=== PATIENT | female | born 1985 | race Two or more races ===

== ENCOUNTER 2018-02-19 10:40 | Inpatient (IN) | payer OTHER ==
--- NOTE | 2018-02-19 11:34 | HP ---
Past Medical History - Primary Care Physician PCP:: Meghan Calvert - Admission Chief Complaint: Induction of labor History of Present Illness: 32 yo EDC ega 39.3 week admitted for induction of labor due to macrosomia usg 8lbs 3 oz efw Hx of HTN and gestational DM with previous GBS positive History Source: Patient Limitations to Obtaining History: No Limitations - Past Medical History ...: 2 ...Para: 1 - Past Surgical History Past Surgical History: Yes: None Hx Myomectomy: No Hx Transabdominal Cerclage: No - Smoking History Have you smoked in the past 12 months: No - Alcohol/Substance Use Hx Alcohol Use: No History of Substance Use: reports: None - Social History Usual Living Arrangement: Yes: With Spouse History of Recent Travel: No Home Medications - Allergies Allergies/Adverse Reactions: Allergies Allergy/AdvReac Type Severity Reaction Status Date / Time No Known Allergies Allergy Verified 02/19/18 11:39 - Home Medications Home Medications: Ambulatory Orders Vitamins (Sjr) - 1 tab PO DAILY 02/19/18 Review of Systems - Review of Systems Constitutional: reports: No Symptoms Eyes: reports: No Symptoms HENT: reports: No Symptoms Neck: reports: No Symptoms Cardiovascular: reports: No Symptoms Respiratory: reports: No Symptoms Gastrointestinal: reports: No Symptoms Genitourinary: reports: No Symptoms Breasts: reports: No Symptoms Reported Musculoskeletal: reports: No Symptoms Integumentary: reports: No Symptoms Neurological: reports: No Symptoms Endocrine: reports: No Symptoms Hematology/Lymphatic: reports: No Symptoms Psychiatric: reports: No Symptoms Physical Exam - Maternity Constitutional: Yes: Well Nourished, No Distress, Obese Neck: Yes: WNL Cardiovascular: Yes: WNL Lungs: Clear to auscultation Breast(s): Yes: WNL - Abdominal Exam/OB Fundal Height: 40 Number of Fetuses: Single Presentation: Vertex Contractions: Yes Regularity: Regular Intensity: Moderate Monitor Mode: External Category: I Decelerations: None - Vaginal Exam/OB Speculum Exam: No Dilatation (cm): 1 cm Amniotic Membrane Status: Intact Presentation: Vertex/Position - Physical Exam Musculoskeletal: Yes: WNL Extremities: Yes: WNL Edema: No Integumentary: Yes: WNL Problem List - Problems (1) Elective induction of labor planned Code(s): TKQ7641 - (2) Obesity affecting in third trimester Code(s): O99.213 - OBESITY COMPLICATING , THIRD TRIMESTER Assessment/Plan iup at 39.4 week obesity elective induction Plan admit induction cervidil
[2018-02-19] MEDS ORDERED: BUTORPHANOL TARTRATE 1 MG/ML VIAL IVPB ONE (11:46)
[2018-02-19] MEDS ORDERED: PROMETHAZINE HCL 25 MG/1 ML VIAL IVPUSH ONE (11:46)
[2018-02-19] MEDS ORDERED: DINOPROSTONE 10 MG VAGINAL SUPPOSITORY VG ONE ×2 (11:49→12:15)
[2018-02-19 11:50] LABS: BASO % 0.3 % (0-2.0); EOS % 0.4 % (0-4.5); HEMOGLOBIN 13.6 GM/dL (10.7-15.3); LYMPH % 19.5 % (8-40); MCH 28.3 pg (25.7-33.7); MCHC 33.2 g/dl (32.0-36.0); MEAN CELL VOLUME 85.2 fl (80-96); MEAN PLT VOLUME 8.3 fl (7.5-11.1); MONO % 10.5 % (3.8-10.2); NEUT % 69.3 % (42.8-82.8); PLATELET COUNT 291 K/MM3 (134-434); RBC 4.82 M/mm3 (3.60-5.2); RDW 14.9 % (11.6-15.6); WHITE BLOOD COUNT 10.2 K/mm3 (4.0-10.0)
[2018-02-19] MEDS ORDERED: ELECTROLYTE-148 SOLN 1,000 ML IV SCH (12:00)
[2018-02-19 12:04] LABS: INR 0.94 (0.82-1.09); PROTHROMBIN TIME (PATIENT) 10.6 SEC (9.98-11.88)
[2018-02-19 12:06] LABS: ACTIVATED PTT 26.8 SECONDS (26.9-34.4)
[2018-02-19 12:08] VITALS: BMI 45.1
[2018-02-19] MEDS ORDERED: TUBERCULIN PPD 5 TU/0.1ML SYRINGE (IN PATIENT USE ONLY) ID ONE (12:30)
[2018-02-19 12:31] LABS: ANION GAP 12 (8-16); BLOOD UREA NITROGEN 7 mg/dL (7-18); CALCIUM 9.1 mg/dL (8.5-10.1); CHLORIDE 100 mmol/L (98-107); CO2 25 mmol/L (21-32); CREATININE 0.4 mg/dL (0.55-1.02); GLUCOSE,RANDOM 87 mg/dL (74-106); POTASSIUM 4.3 mmol/L (3.5-5.1); SODIUM 137 mmol/L (136-145)
[2018-02-19] MEDS ORDERED: AMPICILLIN - 2 GM in SODIUM CHLORIDE 100 ML IVPB ONE (13:01)
[2018-02-19 13:27] LABS: RPR NONREACTIVE (NONREACTIVE)
[2018-02-19] MEDS ORDERED: AMPICILLIN SODIUM 2 GM VIAL ONE (13:53)
[2018-02-19] MEDS ORDERED: FENTANYL/BUPIVACAINE/NS/PF - PCEA - 50 ML DISP.SYRIN EP ONE (15:24)
[2018-02-19] MEDS ORDERED: BUPIVACAINE HCL/PF 0.25% (2.5MG/ML) 10 ML VIAL ONE (15:29)
--- NOTE | 2018-02-19 15:46 | PN ---
Progress Note (short form) - Note Progress Note: I was asked by Dr. Calvert to begin induction for this pt. I spoke to the pt, her partner, and chart reviewed. Briefly, 32yo P1 with at EGA 39w2d admitted for labor induction. care complicated by maternal obesity. FHT with baseline 140 bpm with moderate variability and accels, no decels, no contractions. VE: 1cm/50/-3, Adequate gynecoid pelvimetry Pt is not in labor. Fetus with Category I tracing. Adequate gynecoid pelvimetry on exam. We had long discussion re: risks, benefits, and alternatives of labor induction. I explained the options of expectant management awaiting spontaneous labor, induction of labor, and elective section. The risks of uterine tachysystole, distress, uterine rupture, need for emergency C/S, hemorrhage, infection, scarring, etc. were discussed. We also discussed the risks of meconium aspiration, shoulder dystocia, and anesthesia options. The pt requested to proceed with induction. We discussed the alternative methods of induction with Cervidil, Cytotec, Folley ballon, and pitocin. The pt prefers Cervidil followed by pitocin, if needed. Cervidil was inserted at 1:45pm.
[2018-02-19] MEDS ORDERED: PHENYLEPHRINE HCL 10 MG/1 ML SINGLE DOSE VIAL ONE (15:54)
[2018-02-19] MEDS ORDERED: NALOXONE HCL 0.4 MG/ML VIAL IVPUSH PRN (16:13)
[2018-02-19] MEDS ORDERED: FENTANYL/BUPIVACAINE/NS/PF - PCEA - 50 ML DISP.SYRIN EP SCH (16:15)
[2018-02-19] MEDS ORDERED: ePHEDrine SULFATE 50 MG/1 ML AMPULE ONE (16:33)
[2018-02-19] MEDS ORDERED: PROPOFOL 20 ML ONE (16:35)
[2018-02-19] MEDS ORDERED: SUCCINYLCHOLINE CHLORIDE 200 MG/10 ML VIAL ONE (16:35)
[2018-02-19] MEDS ORDERED: LIDO 2%/EPI 1:200000 PRESRVFRE (20 ML SDVIAL) ONE (16:36)
--- NOTE | 2018-02-19 16:40 | PN ---
Ante-Partal Exam - Subjective Subjective: Pt with repetitiive decels after epidural and low BP Vital Signs: Vital Signs Temperature 98.8 F 02/19/18 16:00 Pulse Rate 106 H 02/19/18 15:00 Respiratory Rate 20 02/19/18 15:00 Blood Pressure 138/69 02/19/18 15:00 O2 Sat by Pulse Oximetry (%) Bleeding: No Headache: No Visual changes: No Right upper quadrant pain: No - Contractions Contractions: Yes Regularity: Regular Monitor Mode: External - Exam during Labor Variability: Minimal Category: III Monitor Accelerations: Absent Monitor Decelerations: Variable Exam: Vaginal Dilatation (cm): 5-6 cm Amniotic Membrane Status: Ruptured Presentation: Vertex Station: -2 - Assessment/Plan Assessment/Plan: Cat3 nonreasuring tracing obesity Hypotension Plan Primary Section Notify peds notify anesthesia
[2018-02-19] MEDS ORDERED: ceFAZolin SODIUM 1 GM VIAL ONE (16:47)
[2018-02-19] MEDS ORDERED: OXYTOCIN 10 UNITS/ML VIAL ONE ×2 (16:55→17:14)
[2018-02-19] MEDS ORDERED: morphine SULFATE/Preservative Free 0.5 MG/ML (1cc Syringe) EP ONE (17:05)
[2018-02-19] MEDS ORDERED: ONDANSETRON 4 MG/2 ML VIAL IVPUSH PRN (17:07)
[2018-02-19] MEDS ORDERED: IBUPROFEN 600 MG TABLET (FP) PO PRN ×2 (17:07→18:08)
[2018-02-19 17:32] LABS: ARTERIAL BLOOD GAS BASE EXCESS -3.4 meq/l (-2-2); ARTERIAL BLOOD GAS PCO2 57.8 mmHg (35-45); ARTERIAL BLOOD GAS pH 7.25 (7.35-7.45)
[2018-02-19 17:42] LABS: ARTERIAL BLD GAS O2 SATURATION 61.7 % (90-98.9); ARTERIAL BLOOD GAS PO2 30.1 mmHg (80-100)
[2018-02-19 17:50] LABS: VENOUS PO2 20.8 mmHg (28-48)
[2018-02-19 17:51] LABS: VENOUS PH 7.2 (7.32-7.42)
[2018-02-19] MEDS ORDERED: AMPICILLIN - 1 GM in SODIUM CHLORIDE 100 ML IVPB SCH (18:00)
[2018-02-19] MEDS ORDERED: METHYLERGONOVINE MALEATE 0.2 MG/1 ML AMP IM PRN (18:08)
[2018-02-19] MEDS ORDERED: IBUPROFEN 800 MG/8 ML IJ IVPB PRN (18:08)
[2018-02-19] MEDS ORDERED: BENZOCAINE 20% 57 GM BOTTLE TP PRN (18:08)
[2018-02-19] MEDS ORDERED: OXYTOCIN 20 UNITS in 0.9% NS 20 UNIT/1,000 ML INFUS.BAG IV SCH (18:15)
--- NOTE | 2018-02-19 18:25 | OP ---
Operative Note - Note: Operative Date: 02/19/18 Pre-Operative Diagnosis: Nonreassuring Tracing Operation: Primary low transverse Section Findings: Live female infant Post-Operative Diagnosis: Same as Pre-op Surgeon: Meghan Calvert Body Designer: Daren Blackwell Anesthesiologist/SENIOR PRICING ANALYST: William Cervantes Anesthesia: Epidural Estimated Blood Loss (mls): 500 Operative Report Dictated: Yes
--- NOTE | 2018-02-19 18:42 | OP ---
DATE OF OPERATION: 02/19/2018 PREOPERATIVE DIAGNOSIS: Nonreassuring tracing, intrauterine at 39 weeks, and obesity. OPERATION: Primary section. POSTOPERATIVE DIAGNOSIS: Nonreassuring tracing, intrauterine at 39 weeks, and obesity. Life female infant. SURGEON: Raghavendra Calvert M.D. FOOD SERVICE AGENT: Daren Blackwell M.D. ANESTHESIOLOGIST: William Cervantes M.D. ANESTHESIA: Epidural. DESCRIPTION OF PROCEDURE: Patient was taken to the operating room, placed in supine position. Prepped and draped in usual sterile fashion. Pfannenstiel skin incision was made with a scalpel. Cautery was then used to go through layers of abdominal wall towards the fascia. Fascia was cut in the midline, and cautery was then used to open the fascia in smiling fashion. Amena was then used to bluntly and sharply dissect the rectus muscle off the fascia. The muscle split in the midline. Peritoneal cavity was then entered and carried upward and downward. The bladder retractor was then placed. Vesicouterine reflection was then entered and carried downwards. The scalpel was then used to make a low transverse uterine incision. Incision was carried upward using bandage scissors. A live female infant was delivered in OP position. Nuchal cord x1 was reduced. The shoulders were delivered without difficulty. The cord was clamped and cut. Cord pH obtained, and cord blood obtained. Infant was handed to soda maker. The placenta was manually extracted from the uterus. The uterus was exteriorized and cleaned with clean lap pads. The uterine incision was then closed using 0 Biosyn suture, first layer continuous interlocking, second layer imbricating the first layer. Hemostasis was achieved. Abdominal cavity cleaned with clean lap pads. Tubes and ovaries noted normal. Abdominal sweep was done. Peritoneal cavity was then closed using 0 Biosyn suture. Fascia was then closed using 0 Vicryl suture in 2 parts. Subcutaneous was then closed using interrupteds using 0 Biosyn suture, and skin was then closed using 3-0 Vicryl suture in subcuticular fashion. Wound was washed and dressed. Patient tolerated the procedure well. Taken to recovery in stable condition. Estimated blood 500 mL. RAGHAVENDRA CALVERT M.D. [id number] [facility]
[2018-02-19] MEDS ORDERED: OXYTOCIN 20 UNITS in 0.9% NS 20 UNIT/1,000 ML INFUS.BAG IV ONE (19:43)
[2018-02-20 08:48] LABS: BASO % 0.2 % (0-2.0); EOS % 0.1 % (0-4.5); HEMOGLOBIN 11.3 GM/dL (10.7-15.3); LYMPH % 15.1 % (8-40); MCHC 32.4 g/dl (32.0-36.0); MEAN CELL VOLUME 86.5 fl (80-96); MEAN PLT VOLUME 8.4 fl (7.5-11.1); MONO % 11.3 % (3.8-10.2); NEUT % 73.3 % (42.8-82.8); PLATELET COUNT 242 K/MM3 (134-434); RBC 4.04 M/mm3 (3.60-5.2); RDW 14.9 % (11.6-15.6); WHITE BLOOD COUNT 11.2 K/mm3 (4.0-10.0)
--- NOTE | 2018-02-20 08:50 | PN ---
Progress Note (short form) - Note Progress Note: POD #1 - s/p under epidural anesthesia with duramorph. Pt. doing well , sitting up comfortably in bed baby. No complaints. Good pain control. No apparent anesthetic complications noted. Continue current care.
[2018-02-20] MEDS: ENOXAPARIN NA (PORCINE) 40 MG/0.4 ML DISP.SYRIN SQ SCH (09:25)
--- NOTE | 2018-02-20 09:31 | PN ---
Post Progress Note - Subjective Subjective: 32 yo Para 2 status post primary , seen and evaluated. She's lying in bed, no complaints. Post Day: 1 Type of Delivery: Primary C/S Vital Signs: Vital Signs Temperature 99.5 F 02/20/18 07:47 Pulse Rate 100 H 02/20/18 07:47 Respiratory Rate 20 02/20/18 08:00 Blood Pressure 123/68 02/20/18 07:47 O2 Sat by Pulse Oximetry (%) 96 02/19/18 19:30 Breast Exam: Yes: Soft Uterus: Yes: Fundus Firm Incision: Yes: Dressing dry and intact Abdomen/GI: Yes: Abdomen soft, Tolerating PO Lochia: Yes: Rubra Lochia, amount: Small Extremities: Yes: Calves non-tender Perineum: Yes: Intact Activity: Other (Lying in bed) - Labs Labs: CBC WBC 11.2 K/mm3 (4.0-10.0) H 02/20/18 07:45 RBC 4.04 M/mm3 (3.60-5.2) 02/20/18 07:45 Hgb 11.3 GM/dL (10.7-15.3) D 02/20/18 07:45 Hct 35.0 % (32.4-45.2) 02/20/18 07:45 MCV 86.5 fl (80-96) 02/20/18 07:45 MCH 28.0 pg (25.7-33.7) 02/20/18 07:45 MCHC 32.4 g/dl (32.0-36.0) 02/20/18 07:45 RDW 14.9 % (11.6-15.6) 02/20/18 07:45 Plt Count 242 K/MM3 (134-434) 02/20/18 07:45 MPV 8.4 fl (7.5-11.1) 02/20/18 07:45 Neutrophils % 73.3 % (42.8-82.8) 02/20/18 07:45 Lymphocytes % 15.1 % (8-40) D 02/20/18 07:45 Monocytes % 11.3 % (3.8-10.2) H 02/20/18 07:45 Eosinophils % 0.1 % (0-4.5) 02/20/18 07:45 Basophils % 0.2 % (0-2.0) 02/20/18 07:45 Problem List - Problems (1) Status post primary low transverse section Code(s): Z98.891 - HISTORY OF UTERINE SCAR FROM PREVIOUS SURGERY Assessment/Plan Status post primary Obesity DVT prophylaxis Ambulation Analgesia as needed
[2018-02-20] MEDS: SIMETHICONE 80 MG TAB.CHEW (FP) PO PRN ×2 (12:48→21:09)
[2018-02-20] MEDS: ACETAMINOPHEN 325 MG TABLET (FP) PO PRN ×2 (12:49→21:08)
[2018-02-20] MEDS ORDERED: oxyCODONE HCL 5 MG TABLET ONE (14:54)
[2018-02-20] MEDS: IBUPROFEN 600 MG TABLET (FP) PO PRN ×2 (14:57→21:07)
[2018-02-20] MEDS: BISACODYL 10 MG SUPP.RECT RC PRN (16:32)
[2018-02-20] MEDS ORDERED: oxyCODONE HCL 5 MG TABLET PO PRN (18:13)
[2018-02-21] MEDS: SENNOSIDES/DOCUSATE COMBO (SENNA PLUS) TABLET (UD) PO PRN ×3 (00:23→22:21)
[2018-02-21] MEDS: ACETAMINOPHEN 325 MG TABLET (FP) PO PRN ×4 (08:04→22:21)
[2018-02-21] MEDS: SIMETHICONE 80 MG TAB.CHEW (FP) PO PRN ×4 (08:04→22:21)
[2018-02-21] MEDS: oxyCODONE HCL 5 MG TABLET PO PRN ×4 (08:04→22:22)
[2018-02-21] MEDS: ENOXAPARIN NA (PORCINE) 40 MG/0.4 ML DISP.SYRIN SQ SCH (09:50)
--- NOTE | 2018-02-22 00:05 | PN ---
Progress Note (SOAP) - Current Medications Current Medications: Active Medications Acetaminophen (Tylenol -) 650 mg PO Q4H PRN PRN Reason: PAIN SCALE 1-3 Last Admin: 02/21/18 22:21 Dose: 650 mg Benzocaine (Americaine 20% [place] -) 1 spray TP PRN PRN PRN Reason: Pain - Topical Bisacodyl (Dulcolax Suppository -) 10 mg RC PRN PRN PRN Reason: CONSTIPATION Last Admin: 02/20/18 16:32 Dose: 10 mg Diphenhydramine HCl (Benadryl Injection -) 25 mg IVPUSH Q4H PRN PRN Reason: Pruritis Last Admin: 02/20/18 06:32 Dose: 25 mg Enoxaparin Sodium (Lovenox -) 40 mg SQ DAILY DANIELLA Last Admin: 02/21/18 09:50 Dose: 40 mg Parenteral Electrolytes (Plasma-Lyte 148 -) 1,000 mls @ 125 mls/hr IV ASDIR DANIELLA Last Admin: 02/19/18 13:55 Dose: 125 mls/hr Oxytocin/Sodium Chloride (Normal Saline+20 Units Oxytocin -) 20 unit in 1,000 mls @ 125 mls/hr IV [facility]IR [facility] Ibuprofen (Caldolor Injection -) 800 mg IVPB Q8H PRN PRN Reason: PAIN LEVEL 4 - 6 Last Admin: 02/20/18 08:37 Dose: 800 mg Ibuprofen (Motrin -) 600 mg PO Q4H PRN PRN Reason: PAIN SCALE 4 - 10 Last Admin: 02/20/18 21:07 Dose: 600 mg Methylergonovine Maleate (Methergine Injection -) 0.2 mg IM Q4H PRN PRN Reason: Excessive Bleeding (L&D) Naloxone HCl (Narcan -) 0.4 mg IVPUSH PRN PRN PRN Reason: Sedation Ondansetron HCl (Zofran Injection) 4 mg IVPUSH Q4H PRN PRN Reason: NAUSEA Last Admin: 02/19/18 22:12 Dose: 4 mg Oxycodone HCl (Roxicodone -) 5 mg PO Q4H PRN PRN Reason: PAIN LEVEL 4 - 6 Last Admin: 02/20/18 14:57 Dose: 5 mg Oxycodone HCl (Roxicodone -) 10 mg PO Q4H PRN PRN Reason: PAIN LEVEL 7 - 10 Last Admin: 02/21/18 22:22 Dose: 10 mg Senna/Docusate Sodium (Pericolace -) 2 tablet PO HS PRN PRN Reason: CONSTIPATION Last Admin: 02/21/18 22:21 Dose: 2 tablet Simethicone (Mylicon -) 80 mg PO Q4H PRN PRN Reason: GAS Last Admin: 02/21/18 22:21 Dose: 80 mg - Objective Vital Signs: Vital Signs Temperature 98.2 F 02/21/18 22:23 Pulse Rate 94 H 02/21/18 22:23 Respiratory Rate 20 02/21/18 22:23 Blood Pressure 123/69 02/21/18 22:23 O2 Sat by Pulse Oximetry (%) 96 02/19/18 19:30 Constitutional: Yes: Well Nourished, No Distress Cardiovascular: Yes: WNL Respiratory: Yes: WNL ....Post : Yes: Uterus firm, Uterus non-tender Musculoskeletal: Yes: WNL Extremities: Yes: WNL Wound/Incision: Yes: Clean/Dry, Well Approximated Neurological: Yes: WNL, Alert, Oriented Labs Lab Results: CBC, BMP 02/20/18 07:45 02/19/18 11:45 Problem List - Problems (1) Elective induction of labor planned Code(s): [id number] - (2) Obesity affecting in third trimester Code(s): O99.213 - OBESITY COMPLICATING , THIRD TRIMESTER Assessment/Plan pod2 SP CS Plan DC home in am
[2018-02-22] MEDS: BISACODYL 10 MG SUPP.RECT RC PRN (07:28)
[2018-02-22 08:33] LABS: BASO % 0.6 % (0-2.0); EOS % 1.5 % (0-4.5); HEMOGLOBIN 12.4 GM/dL (10.7-15.3); LYMPH % 18.6 % (8-40); MCHC 32.5 g/dl (32.0-36.0); MEAN CELL VOLUME 86.1 fl (80-96); NEUT % 71.3 % (42.8-82.8); PLATELET COUNT 323 K/MM3 (134-434); RBC 4.41 M/mm3 (3.60-5.2); RDW 14.7 % (11.6-15.6); WHITE BLOOD COUNT 11.2 K/mm3 (4.0-10.0)
[2018-02-22] MEDS: SIMETHICONE 80 MG TAB.CHEW (FP) PO PRN ×3 (09:56→22:06)
[2018-02-22] MEDS: ENOXAPARIN NA (PORCINE) 40 MG/0.4 ML DISP.SYRIN SQ SCH (09:56)
[2018-02-22] MEDS: ACETAMINOPHEN 325 MG TABLET (FP) PO PRN ×3 (09:57→22:07)
[2018-02-22] MEDS: IBUPROFEN 600 MG TABLET (FP) PO PRN ×3 (09:57→22:06)
--- NOTE | 2018-02-23 07:23 | DS ---
Physical Exam-VENEER SANDER Vital Signs: Vital Signs Temperature 98.2 F 02/22/18 20:39 Pulse Rate 80 02/22/18 20:39 Respiratory Rate 20 02/22/18 20:39 Blood Pressure 128/84 02/22/18 20:39 O2 Sat by Pulse Oximetry (%) 96 02/19/18 19:30 Constitutional: Yes: Well Nourished Eyes: Yes: Conjunctiva Clear HENT: Yes: Atraumatic Neck: Yes: Supple Cardiovascular: Yes: Regular Rate and Rhythm Respiratory: Yes: Regular Gastrointestinal: Yes: Normal Bowel Sounds External Genitalia: Yes: Normal Vaginal Exam: Yes: Normal Cervix: Yes: Normal Uterus: Yes: Firm Wound/Incision: Yes: Well Approximated, Steri Strips (in place) Neurological: Yes: Alert, Oriented ...Motor Strength: WNL Psychiatric: Yes: Alert, Oriented Labs: CBC, BMP 02/22/18 07:45 02/19/18 11:45 Delivery - Delivery Type of Anesthesia: Epidural Episiotomy/Laceration: None EBL (cc): 500 Delivery, Single - Stages of Labor Date 1st Stage Initiatied: 02/19/18 Time 1st Stage Initiated: 14:30 Date of Delivery: 02/19/18 Time of Delivery: 16:55 Time Placenta Delivered: 16:57 - Condition of An Employee Sponsor Or Advocate And/Piano Sounding Board Matcher Present: Yes Name: Dave Lockhart Gender: Female Weight: 8 lb 6 oz Position: Left, OT Total Hours ROM (Hrs/Mins): 57 min - 1 Minute Total Score: 9 5 Minutes Total Score: 9 - [place] Feeding Plan Initial Plan: Elected not to breastfeed exclusively throughout hospitalization Discharge Summary Reason For Visit: LABOR INDUCTION Current Active Problems Elective induction of labor planned (Acute) Obesity affecting in third trimester (Acute) Status post primary low transverse section (Acute) Procedures: Principal: delivery Hospital Course: Routine Post op care Condition: Good - Instructions Diet, Activity, Other Instructions: Physical activity Resume your normal everyday activity as tolerated no heavy lifting or exercise until seen by your surgeon. You may walk unlimited dago of and climb stairs. You may resume driving the car when you feel safe and comfortable behind the wheel. No sexual activity as instructed. Wound care If you have a bandage, leave it on, and keep dry for 48-72 hours. After that time discard the outer bandage. If they are tapes on the skin under the out of bandage leave them in place. They will peel off in the next 7 to 10 days. Do Not Peel them off. You may shower the day after surgery. If there are tapes present on the skin, you may shower over them. Diet There are no dietary restrictions. Eat healthy, high-fiber foods. Drink 6 to 8 glasses of liquid each day. This will assist in keeping your bowels are regular. Pain management You may take Tylenol or acetaminophen or Ibuprofen (for example, Motrin, Advil etc.) from my pain prescription medication is ordered should be taken as prescribed for moderate to severe pain. Call MD for any of the following: Severe pain not relieved by medication Fever of 101 or higher Excessive bleeding or drainage on dressing Inability to urinate Disposition: HOME - Home Medications Comprehensive Discharge Medication List: Ambulatory Orders Vitamins (Sjr) - 1 tab PO DAILY 02/19/18 Oxycodone HCl/Acetaminophen [Percocet 5-325 mg Tablet] 1 - 2 tab PO Q6H #20 tab MDD 6 02/22/18
[2018-02-23] MEDS: ENOXAPARIN NA (PORCINE) 40 MG/0.4 ML DISP.SYRIN SQ SCH (09:58)
[2018-02-23] MEDS: SIMETHICONE 80 MG TAB.CHEW (FP) PO PRN (09:58)
[2018-02-23] MEDS: IBUPROFEN 600 MG TABLET (FP) PO PRN (09:58)
[2018-02-23] MEDS: ACETAMINOPHEN 325 MG TABLET (FP) PO PRN (09:59)
[2018-02-23 11:59] VITALS: BP 125/68; PULSE 82; TEMP 98.4
--- NOTE | 2018-02-24 11:33 | PATH ---
Surgical Pathology Report Patient Name: RENARD HUERTA Med. Rec. #: [id number] /Age/Gender: 1985 (Age: 32) / F Account: [id number] Location: [facility] OBS/CASE PACKER AND SEALER Taken: 02/19/2018 Received: 02/20/2018 Reported: 02/24/2018 Physicians: Meghan Calvert M.D. Specimen(s) Received PLACENTA Clinical History , 39.2 gestational weeks, nonreassuring heart rate Final Diagnosis PLACENTA, DELIVERY: FOCALLY DISRUPTED THIRD TRIMESTER PLACENTA WITH THREE VESSEL UMBILICAL CORD AND UNREMARKABLE PLACENTAL MEMBRANES. Electronically Signed Esteban Valdez M.D. Gross Description The specimen is received fresh labeled placenta and is a 586 gram, 21.0 x 16.0 x 2.7 cm. placenta with attached membranes and umbilical cord. The attached membranes are khan, translucent with focal opacities and insert marginally. The umbilical cord measures 10.5 cm. in length and averages 1.1 cm. in diameter. The cord inserts eccentrically, 3 cm. to the nearest margin. No true knots or strictures are identified. Cut surface of the umbilical cord reveals 3 vessels. The surface is cole-blue with minimal fibrin deposition and appropriate caliber vessels. The maternal surface is red-brown with focal defects. Sectioning reveals red-brown, spongy parenchyma. No lesions are identified. Scrap Kettle Tender sections are submitted in three cassettes as follows: 1- membrane rolls and umbilical cord; 2-3- full thickness sections of placenta. 02/21/2018 saudi02/21/2018
== END 2018-02-23 11:30 | disposition home or self-care (01) | DRG 540 ==
LOC: JLDR 10:40 → J3W 20:00
PROVIDERS: ADMIT Obstetrics & Gynecology; ATTEND Obstetrics & Gynecology
PROC: 10D00Z1 Extraction of Products of Conception, Low, Open Approach (ICD-10-PCS; principal; 2018-02-19)
DX: O76 Abnormality in fetal heart rate and rhythm complicating labor and delivery (principal); O99.214 Obesity complicating childbirth; E66.8 Other obesity; Z68.42 Body mass index [BMI] 45.0-49.9, adult; Z3A.39 39 weeks gestation of pregnancy; Z37.0 Single live birth
CPT/HCPCS: 36415; 36600; 80048; 82803; 85025; 85610; 85730; 86593; 86850; 86900; 86901; 87389; 88307-TC

== ENCOUNTER 2021-11-18 09:57 | Emergency (ER) | payer OTHER ==
[2021-11-18 10:09] VITALS: BP 118/59; PULSE 65; TEMP 98.5; BMI 29.0
[2021-11-18 13:07] LABS: ALBUMIN 3.5 g/dl (3.4-5.0); BLOOD UREA NITROGEN 7.8 mg/dL (7-18)
[2021-11-18 13:08] LABS: EPI CELLS 20 /uL (0-25.1); HYALINE CASTS 2 /uL (0-3.1); PH,URINE 6.5 (5.0-8.0); URINE APPEARANCE CLEAR; URINE BACTERIA 381 /uL (0-1359); URINE BILIRUBIN NEGATIVE (NEGATIVE); URINE COLOR YELLOW; URINE GLUCOSE (UA) NEGATIVE (NEGATIVE); URINE KETONE NEGATIVE (NEGATIVE); URINE LEUK ESTERASE NEGATIVE (NEGATIVE); URINE NITRITE NEGATIVE (NEGATIVE); URINE PROTEIN NEGATIVE (NEGATIVE); URINE UROBILINOGEN 0.2 mg/dL (0.2-1.0); URINE WBC 16 /uL (0-25.8)
[2021-11-18 13:09] LABS: HCG,QUALITATIVE URINE Positive
[2021-11-18 13:10] LABS: CREATININE 0.6 mg/dL (0.55-1.3)
[2021-11-18 13:11] LABS: BILIRUBIN,TOTAL 0.4 mg/dL (0.2-1)
[2021-11-18 13:13] LABS: TOT PROT 7.4 g/dl (6.4-8.2)
== END 2021-11-18 15:00 | disposition home or self-care (01) ==
LOC: JER 09:57
DX: O20.0 Threatened abortion (principal); Z3A.11 11 weeks gestation of pregnancy
CPT/HCPCS: 36415; 76830-TC; 80053; 81003; 84702; 84703; 86850; 86900; 86901; 87086; 99284-25